=== PATIENT | male | born 1990 | race Caucasian/White ===

== ENCOUNTER 2019-08-28 17:01 | Emergency (ER) | payer OTHER ==
[~2019-08-28] VITALS: Ht 182.8 cm; Wt 93.0 kg
== END 2019-08-28 17:39 | disposition left against medical advice (07) ==
LOC: ED 17:01
DX: F11.10 Opioid abuse, uncomplicated (principal); F41.9 Anxiety disorder, unspecified; R11.0 Nausea; R61 Generalized hyperhidrosis; F17.200 Nicotine dependence, unspecified, uncomplicated

== ENCOUNTER 2019-08-28 18:23 | Inpatient (IN) | payer OTHER ==
[~2019-08-28] VITALS: Ht 182.8 cm; Wt 91.7 kg
[2019-08-28 18:24] VITALS: BP 118/76
[2019-08-28 19:10] VITALS: BP 104/63
--- NOTE | 2019-08-28 19:11 | NUR ---
PATIENT SITTING UP IN BED ON CELL PHONE. C/O OF FEELING NAUSEOUS AND ANXIOUS. STATES THAT HE HAS BEEN 9 MONTHS CLEAN TILL 2 WEEKS AGO. WILL CONTINUE TO MONITOR FOR S/S OF WITHDRAWL.
[2019-08-28 20:20] VITALS: BP 124/72
--- NOTE | 2019-08-28 20:30 | NUR ---
A 29, admitted to , under the services of LEN Montejo DO with a diagnosis of HEROIN ABUSE. Chief complaint is SUBSTANCE ABUSE WITHDRAWAL. Patient arrived via wheel chair from ER. Monitor applied. Initial assessment completed. Vital signs taken and recorded. LEN MONTEJO DO notified of admission to the unit. Orders received. See assessment for past medical history, medications and allergies. Patient and/or family oriented to unit. [facility] visitation policy reviewed. Clothing/patient valuable form completed. DIANNE PADILLA
--- NOTE | 2019-08-28 21:00 | NUR ---
PT STATES THAT IF HE IS UNABLE TO TAKE SUBUTEX TONIGHT, HE IS GOING TO LEAVE AGAINST MEDICAL ADVICE. DR MEIER NOTIFIED AND STATES THAT WE HAVE NOT BEEN ABLE TO CONTACT [facility], THEREFORE WE CANNOT GIVE THE PATIENT SUBOXONE. WILL NOTIFY PATIENT.
--- NOTE | 2019-08-28 21:30 | NUR ---
Patient signed out AMA. Patient encouraged to stay and advised of possible consequences of premature discharge. Physician DR DOWLING and vineyard supervisor VIJAYA notified. Patient instructed what to do regarding care post-departure from the hospital. DIANNE PADILLA
--- NOTE | 2019-08-28 21:30 | NUR ---
PT LEAVES AGAINST MEDICAL ADVICE AT THIS TIME. CHARGE NURSE, NURSING BENCH SCIENTIST, AND PHYSICIAN NOTIFIED. PT GATHERS ALL BELONGINGS AND WALKS TO LOBBY TO [facility].
== END 2019-08-28 21:30 | disposition left against medical advice (07) | DRG 251 ==
LOC: ED 18:23 → EDHOLD 18:38 → 4E 18:55
PROVIDERS: ADMIT Emergency Medicine
DX: R10.9 Unspecified abdominal pain (principal); F11.10 Opioid abuse, uncomplicated; R19.7 Diarrhea, unspecified; Z53.21 Procedure and treatment not carried out due to patient leaving prior to being seen by health care provider; R11.2 Nausea with vomiting, unspecified

== ENCOUNTER 2019-12-25 15:48 | Inpatient (IN) | payer OTHER ==
[~2019-12-25] VITALS: Ht 185.4 cm; Wt 92.2 kg
[2019-12-25 15:58] VITALS: BP 130/77
--- NOTE | 2019-12-25 16:28 | NUR ---
PATIENT WAS SEEN IN MY OFFICE. PATIENT MEETS [facility]. PATIENT IS GOING TO FOLLOW UP WITH [facility] FOR INTERSIVE OUTPATIENT TREATMENT. ERLINDA GUTIERREZ B.A. RETURNS PROCESSOR
[2019-12-25 16:51] LABS: URINE AMPHETAMINES > 1000 (1000ng/ml); URINE BARBITURATES < 200 (200ng/ml); URINE BENZODIAZEPINES < 200 (200ng/ml); URINE CANNABINOIDS (THC) < 50 (50ng/ml); URINE COCAINE < 300 (300ng/ml); URINE METHADONE < 300 (300ng/ml); URINE OPIATES > 300 (300ng/ml)
[2019-12-25 16:54] LABS: URINE PHENCYCLIDINE < 25 (25ng/ml)
[2019-12-25 17:14] LABS: BILIRUBIN NEGATIVE (NEGATIVE); BLOOD NEGATIVE (NEGATIVE); CLARITY CLEAR (CLEAR); COLOR YELLOW (YELLOW); GLUCOSE NEGATIVE (NEGATIVE); KETONE NEGATIVE (NEGATIVE); LEUKO ESTERASE NEGATIVE (NEGATIVE); NITRITE NEGATIVE (NEGATIVE); UROBILINOGEN 0.2 E.U./dl (0.2-1.0)
[2019-12-25 17:31] LABS: BASO # 0.1 10*3/uL (0.0-0.1); EOS # 0.1 10*3/uL (0.0-0.4); EOS % 0.6 % (1.0-4.0); HEMATOCRIT 42.3 % (42.0-52.0); HEMOGLOBIN 14.1 g/dl (14.0-18.0); LYMPH # 1.5 10*3/uL (1.3-4.4); LYMPH % 19.4 % (27.0-41.0); MEAN CELL VOLUME 84.6 fl (80.0-94.0); MEAN CORPUSCULAR HGB 28.2 pg (27.0-31.0); MEAN CORPUSCULAR HGB CONC 33.3 g/dl (33.0-37.0); MEAN PLATELET VOLUME 9.2 fl (9.6-12.3); MONO # 0.7 10*3/uL (0.1-1.0); MONO % 8.3 % (3.0-9.0); NEUT # 5.5 10*3/uL (2.3-7.9); NEUT % 70.6 % (47.0-73.0); PLATELET COUNT AUTOMATED 320 10*3/uL (130-400); RED CELL DISTRI WIDTH 12.3 % (0-14.5); WHITE BLOOD COUNT 7.8 10*3/uL (4.8-10.8)
--- NOTE | 2019-12-25 17:40 | NUR ---
29 year old MALE admitted to room # 512 for stabilization. Reports an addiction to HEROIN, BENZO, METH last used 12 hours prior to admission. Compliant with admission procedure. Patient denies any anxiety, unable to focus eyes on nurse during interview. See assessment forms for additional information about patient status.
[2019-12-25 17:47] LABS: ALBUMIN 4.4 gm/dl (3.1-4.5); ALKALINE PHOSPHATASE 71 U/L (45-117); BUN 9 mg/dl (7-24); CHLORIDE 103 mmol/L (98-107); CREATININE 0.94 mg/dL (0.70-1.30); POTASSIUM 3.9 mmol/L (3.5-5.1); SGOT/AST 14 IU/L (3-35); SGPT/ALT 20 U/L (12-78); SODIUM 139 mmol/L (136-145); TOTAL PROTEIN 8.1 gm/dL (6.4-8.2)
[2019-12-25 17:52] VITALS: BP 132/76
[2019-12-25 17:59] LABS: ETHYL ALCOHOL < 3.0 mg/dl (<3)
[2019-12-25 20:00] VITALS: BP 94/59
--- NOTE | 2019-12-25 21:30 | NUR ---
REQUIP GIVEN PER REQUEST FOR RESTLESS LEGS. WILL MONITOR.
--- NOTE | 2019-12-25 22:16 | NUR ---
PATIENT C/O NAUSEA AND HEADACHE. MAALOX AND MOTRIN PROVIDED PER ORDERS. REQUIP MINIMALLY EFFECTIVE AT THIS TIME. CALL LIGHT WITHIN REACH.
--- NOTE | 2019-12-25 23:56 | NUR ---
PATIENT PROVIDED VISTARIL, ROBAXIN, ZOFRAN, BENTYL AND TRAZODONE PER PRN ORDERS FOR S/S WITHDRAWAL. WILL CONTINUE TO MONITOR. CALL LIGHT IN REACH.
[2019-12-26] VITALS: BP 130/77
--- NOTE | 2019-12-26 01:04 | NUR ---
PT RESTING, NO S/S DISTRESS. WILL CONT TO [facility]ATHY[facility].
[2019-12-26 08:00] VITALS: BP 111/77
[2019-12-26 12:00] VITALS: BP 106/72
[2019-12-26 16:00] VITALS: BP 119/71
[2019-12-26 20:00] VITALS: BP 106/63
--- NOTE | 2019-12-26 20:18 | NUR ---
REQUIP FOR RESTLESS LEGS AND VISTARIL FOR ANXIETY GIVEN PER PATIENT REQUEST. WILL ASSESS EFFECTIVENESS.
--- NOTE | 2019-12-26 20:41 | NUR ---
24 HR chart check completed.
--- NOTE | 2019-12-26 21:00 | NUR ---
PRN MEDICATIONS EFFECTIVE PER PATIENT.
--- NOTE | 2019-12-27 02:27 | NUR ---
Patient resting quietly with no c/o discomfort. Respirations easy and regular. Vital signs stable. No overt distress. HORACIO DREW
[2019-12-27 08:00] VITALS: BP 108/65
--- NOTE | 2019-12-27 08:30 | NUR ---
Patient resting quietly. Respirations easy and regular. Vital signs stable. No overt distress. BAKARI THOMAS R
[2019-12-27 12:00] VITALS: BP 105/62
[2019-12-27 16:00] VITALS: BP 101/63
[2019-12-27 20:00] VITALS: BP 108/61
--- NOTE | 2019-12-27 23:23 | NUR ---
TRAZODONE GIVEN PER PATIENT REQUEST FOR COMPLAINTS OF INSOMNIA. WILL ASSESS EFFECTIVENESS.
[2019-12-28] VITALS: BP 101/59
--- NOTE | 2019-12-28 00:48 | NUR ---
TRAZODONE EFFECTIVE. PATIENT RESTING QUIETLY IN BED. NO SIGNS OR SYMPTOMS OF DISTRESS. RESPIRATIONS EASY, REGULAR, NO DISTRESS. WILL CONTINUE TO MONITOR.
[2019-12-28 11:25] VITALS: BP 122/70
--- NOTE | 2019-12-28 12:00 | NUR ---
Patient discharged in stable condition, referral letter provided to patient with specific instructions and appointment for ongoing treatment. Patient verbalizes understanding of discharge plan.
== END 2019-12-28 12:00 | disposition home or self-care (01) | DRG 773 ==
LOC: ED 15:48 → 5E 16:44 → EDHOLD 16:44 → 5E 17:21
PROVIDERS: Physician Assistant; Student in an Organized Health Care Education/Training Program; ADMIT Internal Medicine
DX: F11.23 Opioid dependence with withdrawal (principal); F13.239 Sedative, hypnotic or anxiolytic dependence with withdrawal, unspecified; R73.9 Hyperglycemia, unspecified; F15.23 Other stimulant dependence with withdrawal; E66.3 Overweight; F41.9 Anxiety disorder, unspecified; F32.9 Major depressive disorder, single episode, unspecified; F17.200 Nicotine dependence, unspecified, uncomplicated; F12.10 Cannabis abuse, uncomplicated; Z68.26 Body mass index [BMI] 26.0-26.9, adult

== ENCOUNTER 2020-04-15 15:50 | Inpatient (IN) | payer OTHER ==
[~2020-04-15] VITALS: Ht 185.4 cm; Wt 101.2 kg
[2020-04-15 16:12] VITALS: BP 127/74
[2020-04-15 16:37] LABS: BASO # 0.1 10*3/uL (0.0-0.1); EOS # 0.1 10*3/uL (0.0-0.4); EOS % 1.7 % (1.0-4.0); LYMPH # 1.5 10*3/uL (1.3-4.4); MEAN CELL VOLUME 85.7 fl (80.0-94.0); MEAN CORPUSCULAR HGB 27.7 pg (27.0-31.0); MEAN CORPUSCULAR HGB CONC 32.3 g/dl (33.0-37.0); MEAN PLATELET VOLUME 9.1 fl (9.6-12.3); MONO # 0.4 10*3/uL (0.1-1.0); MONO % 5.5 % (3.0-9.0); NEUT # 4.9 10*3/uL (2.3-7.9); NEUT % 70.4 % (47.0-73.0); PLATELET COUNT AUTOMATED 248 10*3/uL (130-400); RED BLOOD COUNT 5.02 10*6/uL (4.50-5.90); WHITE BLOOD COUNT 6.9 10*3/uL (4.8-10.8)
[2020-04-15 16:52] LABS: BUN 17 mg/dl (7-24); CHLORIDE 102 mmol/L (98-107); POTASSIUM 4.1 mmol/L (3.5-5.1); SGOT/AST 28 IU/L (3-35); SGPT/ALT 46 U/L (12-78); SODIUM 137 mmol/L (136-145); TOTAL PROTEIN 7.7 gm/dL (6.4-8.2)
[2020-04-15 16:54] LABS: ALKALINE PHOSPHATASE 81 U/L (45-117)
[2020-04-15 16:59] LABS: ACETAMINOPHEN (TYLENOL) < 5.0 ug/ml (10-30); ETHYL ALCOHOL < 3.0 mg/dl (<3)
[2020-04-15 17:15] LABS: CLARITY CLEAR (CLEAR); COLOR YELLOW (YELLOW)
[2020-04-15 17:16] LABS: BACTERIA TRACE; BILIRUBIN 1+ (NEGATIVE); BLOOD NEGATIVE (NEGATIVE); GLUCOSE NEGATIVE (NEGATIVE); KETONE NEGATIVE (NEGATIVE); LEUKO ESTERASE NEGATIVE (NEGATIVE); NITRITE NEGATIVE (NEGATIVE); PH 8.5 (5.0-9.0); UROBILINOGEN 0.2 E.U./dl (0.2-1.0)
[2020-04-15 17:18] LABS: URINE AMPHETAMINES < 1000 (1000ng/ml); URINE BARBITURATES < 200 (200ng/ml); URINE BENZODIAZEPINES < 200 (200ng/ml); URINE CANNABINOIDS (THC) < 50 (50ng/ml); URINE COCAINE < 300 (300ng/ml); URINE METHADONE < 300 (300ng/ml); URINE OPIATES > 300 (300ng/ml)
[2020-04-15 17:19] LABS: URINE PHENCYCLIDINE < 25 (25ng/ml)
[2020-04-15] MEDS ORDERED: SUBOXONE 8 MG-1 EACH SL (17:58)
[2020-04-15 18:05] VITALS: BP 100/64
[2020-04-15 18:23] VITALS: BP 122/70
[2020-04-15 20:00] VITALS: BP 112/58
[2020-04-16] VITALS: BP 101/61
[2020-04-16 08:00] VITALS: BP 91/55
[2020-04-16 12:00] VITALS: BP 112/61
== END 2020-04-16 14:38 | disposition left against medical advice (07) | DRG 770 ==
LOC: ED 15:50 → EDHOLD 17:32 → 5E 17:54
PROVIDERS: Physician Assistant; ADMIT Internal Medicine
DX: F11.23 Opioid dependence with withdrawal (principal); F15.23 Other stimulant dependence with withdrawal; R73.9 Hyperglycemia, unspecified; D64.9 Anemia, unspecified; F12.10 Cannabis abuse, uncomplicated; Z53.29 Procedure and treatment not carried out because of patient's decision for other reasons; Z87.891 Personal history of nicotine dependence; Z82.49 Family history of ischemic heart disease and other diseases of the circulatory system; Z79.899 Other long term (current) drug therapy